=== PATIENT | male | born 1965 | race Caucasian/White ===

== ENCOUNTER 2025-04-30 12:35 | Inpatient (IN) | payer MEDICAID ==
[~2025-04-30] VITALS: Ht 182.9 cm; Wt 68.2 kg
[~2025-04-30 12:35] MED LIST: HYDR-4383 PO; NABU-139 PO
--- NOTE | 2025-04-30 12:43 | ELECTROCARDIOGRAPH REPORT ---
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 Abhi Cheek Measurements Intervals [place] Rate: 103 P: -23 MN: 126 QRS: 78 QRSD: 99 T: 83 QT: 340 QTc: 445 Interpretive Statements Sinus tachycardia Electronically Signed On 05-02-2025 6:35:[address] Abhi Cheek Please click the below link to view image of tracing.
[2025-04-30 13:05] LABS: BASOPHILS # (AUTO) 0.1 X10'3 (0-0.2); BASOPHILS % (AUTO) 0.4 % (0-1); EOSINOPHILS % (AUTO) 0 % (0-6); HEMATOCRIT 40.7 % (42.0-52.0); HEMOGLOBIN 13.6 g/dl (14.0-17.9); LYMPHOCYTES # (AUTO) 1.1 X10'3 (1.1-4.8); LYMPHOCYTES % (AUTO) 5.8 % (21-51); MEAN CORPUSCULAR HEMOGLOBIN 32.2 PG (27.0-31.0); MEAN CORPUSCULAR HGB CONC 33.5 g/dL (33.0-36.5); MEAN CORPUSCULAR VOLUME 96.2 FL (78-98); MEAN PLATELET VOLUME 7.3 FL (7.4-10.4); MONOCYTES # (AUTO) 1.9 X10'3 (0-0.9); MONOCYTES % (AUTO) 10.1 % (2-12); NEUTROPHILS # (AUTO) 15.7 X10'3 (1.8-7.7); NEUTROPHILS % (AUTO) 83.7 % (42-75); PLATELET COUNT 262 X10'3 (140-440); RED BLOOD COUNT 4.23 X10'6 (4.70-6.10); RED CELL DISTRIBUTION WIDTH 14.3 % (11.5-14.5); WHITE BLOOD COUNT 18.7 X10'3 (4.5-11.0)
[2025-04-30 13:21] LABS: ALBUMIN 2.4 G/DL (3.4-5.0); ANION GAP 11 (8-16); BLOOD UREA NITROGEN 21 MG/DL (7-18); BUN/CREATININE RATIO 12.3 (10.0-20.0); CHLORIDE 100 MMOL/L (99-107); CREATININE 1.71 MG/DL (0.60-1.10); GLUCOSE 135 MG/DL (70-104); POTASSIUM 3.9 MMOL/L (3.5-5.1); PRO BRAIN NATRIURETIC PEPTIDE 680 PG/ML (0-125); SODIUM 132 MMOL/L (135-145); TOTAL CARBON DIOXIDE 20.8 MMOL/L (24-32); eCRCL 44 ML/MIN; eGFR 41 ML/MIN
[2025-04-30] MEDS: CEFEPIME 2gm in D5W 50mL 50 ML IV ONE (13:25)
[2025-04-30] MEDS: normal saline 1000ML IV soln IV ONE (13:25)
--- NOTE | 2025-04-30 13:29 | RADIOLOGY REPORT ---
CHEST RADIOGRAPH Indication: CP Technique: Single frontal view of the chest was obtained COMPARISON: None FINDINGS: Lines and Tubes: None Lungs: Clear Pleura: No effusion. No pneumothorax. Cardiomediastinal contours: Unremarkable Bones: Unremarkable IMPRESSION: No acute disease.
[2025-04-30 13:30] LABS: MAGNESIUM 1.8 MG/DL (1.5-2.4)
[2025-04-30] MEDS ORDERED: iohexol 300mg/ml 100ml inj. ONE (13:53)
--- NOTE | 2025-04-30 14:24 | RADIOLOGY REPORT ---
CT CT ABDOMEN PELVIS W/ IV CONTRAST INDICATION: abdominal pain EXAM DATE: 04/30/2025 01:58 PM COMPARISON: None RADIATION DOSE: CTDIvol: 10 mGy, DLP: 522 mGy*cm PROCEDURE: Helical CT images were obtained of the abdomen and pelvis with IV contrast Sagittal and co michelle reconstructions are provided. ORAL CONTRAST: None. ADDITIONAL IMAGES / REFORMATS: None All CT s cans at this medical facility are performed using dose modulation techniques as appropriate to a perf ormed exam including the following: Automated exposure control was utilized; adjustment of the MA and /or KV according to patient size; and use of iterative reconstruction technique. FINDINGS: LUNG BASE: Bibasilar atelectasis. LIVER: Normal. GALLBLADDER AND BILIARY TREE: No calcified gallstones. Normal caliber wall. No intra- or extrahepatic biliary ductal dilation. PANCREAS: Normal. SPLEEN: Normal. BOWEL: Normal. Partially visualized appendix is normal. ADRENALS: Normal. KIDNEYS AND URETER: Bilateral hypoattenuation of the kidneys with perinephric fat stranding can be se en with pyelonephritis. BLADDER: Normal. REPRODUCTIVE ORGANS: Normal. LYMPH NODES:No lymphadenopathy. PERITONEUM: No ascites or free air. No other fluid collection. VESSELS: Scattered atherosclerotic calcifications are noted. RETROPERITONEUM: Normal. ABDOMINAL WALL: Normal. BONES: Scattered osseous degenerative changes are noted. IMPRESSION: Bilateral hypoattenuation of the kidneys with perinephric fat stranding can be seen with pyelonephrit is.
[2025-04-30 15:51] LABS: BILIRUBIN,URINE NEGATIVE (Neg); CLARITY,URINE CLOUDY (Clear); COLOR,URINE YELLOW (Yellow); GLUCOSE, URINE 100 mg/dl (Neg); KETONES,URINE NEGATIVE (Neg); LEUKOCYTE ESTERASE ,URINE MODERATE (Neg); NITRITES, URINE POSITIVE (Neg); OCCULT BLOOD,URINE MODERATE (Neg); PROTEIN,URINE 100 mg/dl (Neg)
[2025-04-30 15:53] LABS: UA COLLECTION TYPE VOIDED
[2025-04-30 16:01] LABS: BACTERIA,URINE 2+ /HPF (Neg); SQUAMOUS EPITHELIAL CELL,UR FEW /LPF (FEW); WBC,URINE TNTC /HPF (0-4)
[2025-04-30 16:02] LABS: MUCUS STRANDS FEW /LPF (Neg); TRANSITIONAL EPI CELLS,URINE FEW /HPF
--- NOTE | 2025-04-30 17:11 | Physician Documentation ---
History of Present Illness ~ Chief Complaint: Shortness of Breath Stated Complaint: SOB Time Seen by MD: 12:54 Primary Medical Doctor: NONE HPI Patient says he has not been feeling well for about 2-3 days. He has had some chills body aches dyspnea with exertion. He has diffuse abdominal pain. Medication Reconciliation Allergies: Coded Allergies: Penicillins (Unverified Allergy, Unknown, 07/02/16) Scheduled Nabumetone (Nabumetone), 1 TAB PO Q12H Scheduled PRN Hydrocodone/Acetaminophen ([place] 5-325 Tablet), 1 TAB PO Q6H PRN PRN for pain Past Medical History Past Medical History: No Pertinent History Alcohol Use: Occasionally Drug Use: none Physical Exam Vital Signs: Temperature: 100.3, Source: Oral, Heart Rate: 77, Respiratory Rate: 18, BP: 109/65, Pulse Oximetry: 95, Weight: 68.180 Oxygen Flow Rate: 0 Physical Exam General: Awake and Alert, ill-appearing HEENT: Conjunctiva pink, Sclera clear, mucous membranes are dry Neck: Supple without masses and tenderness. Resp: Unlabored. Lungs clear to auscultation bilaterally. Heart: Tachycardic, normal S1 and S2 without murmur, rub or gallop. Abdomen: Soft mild diffuse tenderness no point tenderness rebound or guarding or peritoneal signs. Extremities: No cyanosis,clubbing or edema. Skin: Hot to touch no signs of cellulitis Neuro: GCS 15; no focal deficits Progress Results/Orders Results/Orders Orders - LENNIE MCGREGOR MD Chest,Single View (04/30/25 12:40) Monitor (04/30/25 12:40) Saline Lock (04/30/25 12:40) Oxygen (04/30/25 12:40) Hs Troponin I W Calculations (04/30/25 15:40) Culture Blood (04/30/25 12:59) Ct Abdomen Pelvis (04/30/25 14:00) Cult Urine + [place] [address] (04/30/25 16:02) Acetaminophen 1,000mg/100ml Iv (Ofirmev (04/30/25 17:05) Completed Orders - LENNIE MCGREGOR MD Chest,Single View (04/30/25 12:40) Cbc/Diff (04/30/25 12:40) BMP (04/30/25 12:40) PBNP (04/30/25 12:40) Electrocardiogram (04/30/25 12:40) Hs Troponin I W Calculations (04/30/25 12:40) Hs Troponin I W Calculations (04/30/25 14:40) Procalcitonin (04/30/25 12:59) Lacticsepsis (04/30/25 12:59) Normal Saline 1000ml (Sodium Chloride 10 (04/30/25 13:10) Cefepime 2gm In D5w 50ml (Cefepime-D5w 2 (04/30/25 13:13) MG (04/30/25 12:52) Ct Abdomen Pelvis (04/30/25 14:00) Iohexol 300mg/Ml 100ml Inj. (Omnipaque-3 (04/30/25 13:53) Ua W/Microscopic, Cult If Ind (04/30/25 15:29) Medications Received in ER Medications (Trade) Dose Ordered Sig/Jade Route PRN Reason Start Time Stop Time Status Last Admin Dose Admin (sodium chloride 1000ml IV soln) 2,500 ml ONCE ONCE IV 04/30/25 13:10 04/30/25 13:11 DC 04/30/25 13:25 2,500 ML Cefepime/Dextrose 50 ml @ 100 mls/hr ONCE ONCE IV 04/30/25 13:13 04/30/25 13:42 DC 04/30/25 13:25 100 MLS/HR Vital Signs 04/30/25 04/30/25 04/30/25 04/30/25 12:41 12:53 13:11 13:28 Temp 98.8 100.2 100.0 Pulse 103 103 91 Resp 19 16 28 B/P (MAP) 126/77 100/67 (78) 103/66 (78) Pulse Ox 98 96 O2 Flow Rate 0 0 0 04/30/25 04/30/25 04/30/25 15:13 15:36 17:03 Temp 100.0 99.5 100.3 Pulse 84 77 Resp 18 18 B/P (MAP) 101/66 (78) 109/65 (80) Pulse Ox 95 95 O2 Flow Rate 0 0 Laboratory Tests Test 04/30/25 12:52 04/30/25 13:13 04/30/25 15:22 04/30/25 15:29 White Blood Count 18.7 H Red Blood Count 4.23 L Hemoglobin 13.6 L Hematocrit 40.7 L Mean Corpuscular Volume 96.2 Mean Corpuscular Hemoglobin 32.2 H Mean Corpuscular Hemoglobin Concent 33.5 Red Cell Distribution Width 14.3 Platelet Count 262 Mean Platelet Volume 7.3 L Neutrophils (%) (Auto) 83.7 H Lymphocytes (%) (Auto) 5.8 L Monocytes (%) (Auto) 10.1 Eosinophils (%) (Auto) 0 Basophils (%) (Auto) 0.4 Neutrophils # (Auto) 15.7 H Lymphocytes # (Auto) 1.1 Monocytes # (Auto) 1.9 H Eosinophils # (Auto) 0.0 Basophils # (Auto) 0.1 CBC Comment Sodium Level 132 L Potassium Level 3.9 Chloride Level 100 Carbon Dioxide Level 20.8 L Anion Gap 11 Blood Urea Nitrogen 21 H Creatinine 1.71 H Estimated GFR/1.73 m2 41 BUN/Creatinine Ratio 12.3 Glucose Level 135 H Calcium Level 8.0 L Magnesium Level 1.8 Troponin I High Sensitivity 9 10 Pro-B-Type Natriuretic Peptide 680 H Albumin 2.4 L Procalcitonin 1.87 H Chemistry Comments Lactic Acid Level 1.2 Troponin I High Sens Percent Delta 11 Troponin I Hi Sens Absolute Change 1 Urine Specimen Description Voided Urine Color Yellow Urine Clarity Cloudy Urine pH 6.0 Urine Specific Theresa 1.010 Urine Protein 100 H Urine Glucose (UA) 100 H Urine Ketones Negative Urine Occult Blood Moderate H Urine Nitrite Positive H Urine Bilirubin Negative Urine Urobilinogen 2.0 H Urine Leukocyte Esterase Moderate H Urine RBC 3-10 Urine WBC Tntc H Urine Squamous Epithelial Cells Few Urine Transitional Epithelial Cells Few Urine Bacteria 2+ Urine Mucus Few Urine Culture Indicated Indicated Volume Urine Centrifuged 10 ml Urine Comment Microbiology Date/Time Source Procedure Growth Status 04/30/25 16:02 Urine Voided Urine Culture - Preliminary Culture received. Resulted 04/30/25 13:13 Blood Arm Right Blood Culture - Preliminary NEGATIVE (LESS THAN 24 HOURS) Resulted Medical Decision Making Findings EKG as interpreted by me shows a sinus tachycardia of 103 beats per minute axis is normal intervals are normal there was no ST elevation or depression. Patient is here for generalized weakness febrile on arrival some mild diffuse abdominal pain. He meets sepsis criteria he was given cefepime 2.5 L of saline bolus blood cultures were obtained CT scan showed bilateral pyelonephritis urinalysis [place] [address]. KRISTI with a creatinine of 1.7. Electrolytes are reassuring. He has not been hypotensive or signs of septic shock. He was admitted. Departure Disposition: ADMITTED INPATIENT Impression: Primary Impression: Sepsis Qualified Codes: A41.9 - Sepsis, unspecified organism Condition: Stable Referrals: NO PRIMARY CARE PROVIDER (PCP) Education Educated: Patient Educated regarding: diagnosis, treatment, prognosis Critical Care Note Critical Care Note This patient had a high probability of sudden, clinically significant deterioration, which required the highest level of physician preparedness to intervene urgently. The patient required and I delivered critical care from time of arrival until disposition. Critical care time was separate from procedural such as intubation or central line placement or cardioversion. Crit ical care included initial assessment of the seriously ill patient, initiation of diagnostic studies and treatment, management of life-threatening and/or end organ supporting interventions that required frequent physician assessment, and phone consultation with other providers as outlined in the progress notes. Spent with family or surrogates is included only if the patient was not capable of providing the necessary information or participating in medical decision- making. Total critical care time: 45 minutes Signature Scribe Signature: no scribe Attestation: no scribe LENNIE MCGREGOR MD Apr 30, 2025 17:11
[2025-04-30] MEDS: acetaminophen 1,000mg/100ml IV 100 ML IV ONE (17:14)
[2025-04-30] MEDS ORDERED: mag hydrox/Alum hydrox/simeth 30ml oral suspension PO PRN (18:05)
[2025-04-30] MEDS ORDERED: magnesium hydroxide 30ml (MOM) UD suspension PO PRN (18:05)
[2025-04-30] MEDS ORDERED: magnesium Cl slow-release 64mg tablet PO PRN (18:05)
[2025-04-30] MEDS ORDERED: ipratropium/albuterol 3ml nebule NEB PRN (18:05)
[2025-04-30] MEDS ORDERED: magnesium sulf-water 2g/50mL 50 ML IV PRN (18:05)
[2025-04-30] MEDS ORDERED: acetaminophen 325mg tablet PO PRN ×2 (18:05)
[2025-04-30] MEDS ORDERED: potassium Cl 20 mEq SR tablet PO PRN ×2 (18:05)
[2025-04-30] MEDS ORDERED: magnesium sulf-water 4G/100mL 100 ML IV PRN (18:05)
[2025-04-30] MEDS ORDERED: potassium Cl 40MEQ/1/2NS 520ml 520 ML IV PRN (18:05)
[2025-04-30] MEDS ORDERED: docusate sod 100mg capsule PO PRN (18:05)
[2025-04-30] MEDS ORDERED: ondansetron/PF 4mg/2ml inj IV PRN (18:05)
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
[2025-04-30 18:55] LABS: C-REACTIVE PROTEIN 18.36 MG/DL (0.0-0.5); MAGNESIUM 1.7 MG/DL (1.5-2.4); PHOSPHORUS 2.9 MG/DL (2.3-4.5)
[2025-04-30 19:00] LABS: HEMOGLOBIN A1C 5.7 % (4.5-6.2)
[2025-04-30] MEDS: ipratropium/albuterol 3ml nebule NEB SCH (19:00)
[2025-04-30 19:06] LABS: URINE AMPHETAMINE SCREEN POSITIVE (Neg); URINE BARBITUATE SCREEN NEGATIVE (Neg); URINE BENZODIAZEPINES SCREEN NEGATIVE (Neg); URINE CANNABINOID SCREEN POSITIVE (Neg); URINE COCAINE SCREEN NEGATIVE (Neg); URINE METHADONE SCREEN NEGATIVE (Neg); URINE OPIATE SCREEN NEGATIVE (Neg); URINE PHENCYCLIDINE SCREEN NEGATIVE (Neg)
[2025-04-30 19:07] VITALS: PULSE 78; RESP 17; O2SAT 96
[2025-04-30 19:09] LABS: BILIRUBIN,URINE NEGATIVE (Neg); CLARITY,URINE CLOUDY (Clear); COLOR,URINE YELLOW (Yellow); GLUCOSE, URINE NEGATIVE (Neg); KETONES,URINE NEGATIVE (Neg); LEUKOCYTE ESTERASE ,URINE SMALL (Neg); NITRITES, URINE POSITIVE (Neg); OCCULT BLOOD,URINE SMALL (Neg); PROTEIN,URINE 100 mg/dl (Neg)
[2025-04-30 19:10] LABS: UA COLLECTION TYPE CLN CATCH MIDSTREAM
[2025-04-30] MEDS: normal saline 1000ml 1,000 ML IV SCH (19:11)
[2025-04-30] MEDS: CefTRIAXone 2gm/D5W 50ml BAG 50 ML IV SCH (19:11)
[2025-04-30] MEDS: PERFLUTREN PROTEIN-A MICROSPHR (Optison) 0.22 MG/ML 3ML VIAL IV ONE (19:12)
[2025-04-30] MEDS: K and/or MAG REPLACEMENT MC SCH (19:13)
[2025-04-30 19:14] LABS: BACTERIA,URINE 4+ /HPF (Neg); WBC,URINE 20-30 /HPF (0-4)
[2025-04-30 19:15] LABS: SQUAMOUS EPITHELIAL CELL,UR NONE SEEN /LPF (FEW)
[2025-04-30 19:18] VITALS: PULSE 78; RESP 12
[2025-04-30] MEDS: methylPREDNISolone sod succ 125mg/2ml vial IV SCH (19:26)
[2025-04-30] MEDS: heparin, porcine 5000 units/ml vial SQ SCH (19:27)
[2025-04-30 19:31] LABS: ETHANOL < 10 MG/DL (<10); THYROID STIMULATING HORMONE 1.17 ulU/ml (0.34-4.50)
[2025-04-30] MEDS ORDERED: NO HOME MEDS (19:31)
[2025-04-30 20:30] VITALS: BP 114/67; PULSE 81; RESP 26; TEMP 98.4; O2SAT 100
[2025-04-30 22:00] VITALS: BP 111/68; PULSE 79; RESP 25; TEMP 98.6; O2SAT 96
[2025-04-30 22:43] VITALS: PULSE 70; RESP 20; O2SAT 100
[2025-04-30 22:49] VITALS: PULSE 72; RESP 20
[2025-05-01] VITALS (17 sets, daily range): BP systolic 88–116; BP diastolic 57–75; PULSE 44–95; RESP 17–26; TEMP 97.6–98.5; O2SAT 92–97
[2025-05-01 06:13] LABS: BASOPHILS % (AUTO) 0.3 % (0-1); EOSINOPHILS % (AUTO) 0 % (0-6); HEMATOCRIT 33.6 % (42.0-52.0); HEMOGLOBIN 11.2 g/dl (14.0-17.9); LYMPHOCYTES # (AUTO) 0.4 X10'3 (1.1-4.8); LYMPHOCYTES % (AUTO) 2.6 % (21-51); MEAN CORPUSCULAR HEMOGLOBIN 32.9 PG (27.0-31.0); MEAN CORPUSCULAR HGB CONC 33.3 g/dL (33.0-36.5); MEAN CORPUSCULAR VOLUME 98.7 FL (78-98); MEAN PLATELET VOLUME 7.8 FL (7.4-10.4); MONOCYTES # (AUTO) 0.2 X10'3 (0-0.9); MONOCYTES % (AUTO) 1.3 % (2-12); NEUTROPHILS # (AUTO) 14.3 X10'3 (1.8-7.7); NEUTROPHILS % (AUTO) 95.8 % (42-75); PLATELET COUNT 231 X10'3 (140-440); RED CELL DISTRIBUTION WIDTH 14.8 % (11.5-14.5)
[2025-05-01 06:17] LABS: ALANINE AMINOTRANSFERASE 41 U/L (12-78); ALBUMIN 1.7 G/DL (3.4-5.0); ALBUMIN/GLOBULIN RATIO 0.5 (1.1-1.5); ALKALINE PHOSPHATASE 132 IU/L (46-116); ANION GAP 8 (8-16); ASPARTATE AMINO TRANSFERASE 40 U/L (10-37); BILIRUBIN,TOTAL 0.3 MG/DL (0.1-1.0); BLOOD UREA NITROGEN 19 MG/DL (7-18); BUN/CREATININE RATIO 14.5 (10.0-20.0); CALCIUM 7.2 MG/DL (8.5-10.1); CHLORIDE 110 MMOL/L (99-107); CHOL/HDL RATIO 6.1 (0.00-4.99); CHOLESTEROL 85 MG/DL (0-200); CREATININE 1.31 MG/DL (0.60-1.10); GLUCOSE 252 MG/DL (70-104); HDL CHOLESTEROL 14 MG/DL (35-60); LDL CHOLESTEROL 34 MG/DL (50-100); POTASSIUM 4.1 MMOL/L (3.5-5.1); SODIUM 140 MMOL/L (135-145); TOTAL CARBON DIOXIDE 22.3 MMOL/L (24-32); TRIGLYCERIDES 108 MG/DL (20-135); eCRCL 58 ML/MIN; eGFR 56 ML/MIN
[2025-05-01] MEDS: normal saline 1000ml 1,000 ML IV ONE (10:51)
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
--- NOTE | 2025-05-01 18:07 | CARDIOLOGY REPORT ---
APPROVED REPORT EXAM: Comprehensive 2D, Doppler, and color-flow Echocardiogram. Patient Location: [facility]8 B Heart Rate: 54 bpm Rhythm: SINUS DORA Indications CONGESTIVE HEART FAILURE SHORTNESS OF BREATH Charge Histotechnologist: NONE Previous echo: NONE 2D Dimensions RVDd 4.1 cm IVSd 0.8 (0.7-1.1cm) LVDd 4.9 cm PWd 0.9 (0.7-1.1cm) IVSs 1.1 (0.8-1.2cm) LVDs 3.7 (2.5-4.0cm) PWs 1.2 (0.8-1.2cm) LVOT Diameter 2.02 (1.8-2.4cm) LVEF(%) 48.5 (>50%) Ao Asc Diam.3.28 cm IVC 21.21 mmFS (%) 24.5 % SV 55.6 ml CO 3.6 L/min M-Mode Dimensions Left Atrium(MM) 3.88 (2.5-4.0cm) Aortic Root 3.99 (2.2-3.7cm) Aortic Cusp Exc 1.98 (1.5-2.0cm) MV EPSS 0.7 (<0.5cm) Aortic Valve AoV Peak Marcos. 125.7 cm/s AoV VTI 26.5 cm AO Peak GR. 6.3 mmHg AO Mean GR. 4 mmHg LVOT VTI 16.59 cm LVOT Peak Marcos. 90.4 cm/s CAROLANN(VTI)/BSA 2.02 cm2/m2 CAROLANN (VTI) 2.02 cm2 Mitral Valve MV E Velocity 67.7 cm/s MV DECEL TIME 106 ms MV A Velocity 94.9 cm/s E/A Ratio 0.7 MVA (PHT) 5.79 cm2 Pulmonary Vein S1 Velocity 58.7 cm/s D2 Velocity 34.6 cm/s PVa Urupvnwy95.0 cm/s PVa [id number] msec LEFT VENTRICLE Normal LV size and wall thickness. Overall systolic function is low normal. LVEF is 55%. RIGHT VENTRICLE RV is mildly dilated in size with normal function. ATRIA The left atrium size is normal. AORTIC VALVE Trileaflet AV appears mildly sclerotic without stenosis. No insufficiency. MITRAL VALVE Mild MV annular calcification without stenosis. Trace regurgitation. TRICUSPID VALVE TV appears structurally normal with trace regurgitation. PULMONIC VALVE Normal PV without stenosis, no insufficiency. GREAT VESSELS Aortic root is mildly dilated. IVC is dilated and collapses less than 50% with inspiration. PERICARDIUM Normal pericardium. No effusion. Other Information Study Quality: Adequate Conclusion Normal LV size and wall thickness. Overall systolic function is low normal. LVEF is 55%. RV is mildly dilated in size with normal function. The left atrium size is normal. Trileaflet AV appears mildly sclerotic without stenosis. No insufficiency. Mild MV annular calcification without stenosis. Trace regurgitation. TV appears structurally normal with trace regurgitation. Aortic root is mildly dilated. Normal pericardium. No effusion.
[2025-05-02] VITALS (8 sets, daily range): BP systolic 115–127; BP diastolic 61–77; PULSE 50–76; RESP 18–20; TEMP 97.8–98.2; O2SAT 94–100
[2025-05-02 05:52] LABS: BASOPHILS # (AUTO) 0.2 X10'3 (0-0.2); BASOPHILS % (AUTO) 1.1 % (0-1); EOSINOPHILS % (AUTO) 0 % (0-6); HEMATOCRIT 34.8 % (42.0-52.0); HEMOGLOBIN 11.5 g/dl (14.0-17.9); LYMPHOCYTES # (AUTO) 0.5 X10'3 (1.1-4.8); MEAN CORPUSCULAR HEMOGLOBIN 32.4 PG (27.0-31.0); MEAN CORPUSCULAR VOLUME 98.3 FL (78-98); MEAN PLATELET VOLUME 7.8 FL (7.4-10.4); MONOCYTES # (AUTO) 0.4 X10'3 (0-0.9); MONOCYTES % (AUTO) 2.5 % (2-12); NEUTROPHILS # (AUTO) 15.3 X10'3 (1.8-7.7); NEUTROPHILS % (AUTO) 93.4 % (42-75); PLATELET COUNT 285 X10'3 (140-440); RED BLOOD COUNT 3.54 X10'6 (4.70-6.10); RED CELL DISTRIBUTION WIDTH 14.8 % (11.5-14.5); WHITE BLOOD COUNT 16.4 X10'3 (4.5-11.0)
[2025-05-02 06:07] LABS: ALANINE AMINOTRANSFERASE 54 U/L (12-78); ALBUMIN 1.8 G/DL (3.4-5.0); ALBUMIN/GLOBULIN RATIO 0.5 (1.1-1.5); ALKALINE PHOSPHATASE 148 IU/L (46-116); ANION GAP 10 (8-16); ASPARTATE AMINO TRANSFERASE 50 U/L (10-37); BILIRUBIN,TOTAL 0.2 MG/DL (0.1-1.0); BLOOD UREA NITROGEN 26 MG/DL (7-18); CALCIUM 8.7 MG/DL (8.5-10.1); CHLORIDE 114 MMOL/L (99-107); CREATININE 1.04 MG/DL (0.60-1.10); GLUCOSE 147 MG/DL (70-104); POTASSIUM 5.1 MMOL/L (3.5-5.1); SODIUM 149 MMOL/L (135-145); TOTAL CARBON DIOXIDE 24.8 MMOL/L (24-32); TOTAL PROTEIN 5.4 G/DL (6.4-8.2); eCRCL 73 ML/MIN; eGFR 73 ML/MIN
[2025-05-02] MEDS ORDERED: CEFD300C3 PO (12:40)
[2025-05-02] MEDS ORDERED: BUDE10.22 INH (12:40)
[2025-05-02] MEDS ORDERED: ALBU18HF2 IH (12:40)
[2025-05-02] MEDS ORDERED: LACT1CAP26 PO (12:40)
[2025-05-02] MEDS ORDERED: PRED10TA PO (12:42)
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
[2025-05-02] MEDS ORDERED: methylPREDNISolone sod succ 125mg/2ml vial IV SCH (20:00)
== END 2025-05-02 14:28 | disposition home or self-care (01) | DRG 720 ==
LOC: ER 12:35 → ED HOLD 17:26 → EDBEDREQ 19:52 → PCU 3S 20:32
PROVIDERS: ADMIT Family Medicine; ATTEND Family Medicine
PROC: BW211ZZ Computerized Tomography (CT Scan) of Abdomen and Pelvis using Low Osmolar Contrast (ICD-10-PCS; principal; 2025-04-30)
DX: A41.9 Sepsis, unspecified organism (principal); J96.21 Acute and chronic respiratory failure with hypoxia; N17.9 Acute kidney failure, unspecified; E87.1 Hypo-osmolality and hyponatremia; J44.1 Chronic obstructive pulmonary disease with (acute) exacerbation; N18.30 Chronic kidney disease, stage 3 unspecified; N10 Acute pyelonephritis; E44.0 Moderate protein-calorie malnutrition; E88.09 Other disorders of plasma-protein metabolism, not elsewhere classified; F19.10 Other psychoactive substance abuse, uncomplicated; R73.9 Hyperglycemia, unspecified; Z79.899 Other long term (current) drug therapy; Z88.0 Allergy status to penicillin; Z68.20 Body mass index [BMI] 20.0-20.9, adult
CPT/HCPCS: 36415; 71045; 74177; 80048; 80053; 80061; 80305; 80320; 81001; 82948; 83036; 83605; 83735; 83880; 84100; 84145; 84443; 84484; 85025; 85651; 86140; 87040; 87077; 87081; 87088; 87186; 93005; 93306; 94640; 94760; 96361; 96365; 96367; 96372; 96375; 99291; A4615; G0378; J0131; J0692; J0696; J1644; J2919; J7030; Q9967